=== PATIENT | female | born 1980 | race Caucasian/White ===

== ENCOUNTER → 2018-03-13 13:44 | Outpatient (CLI) | payer BC, SELFPAY ==
--- NOTE | 2018-03-13 11:00 | EMB_PTH ---
PATIENT: DEMI ANDRES LOC: [facility] U#:[id number] AGE/SX: 44/F ROOM: RE03/13/[address]: Dr. Timmy Saucedo MD : 1980 BED: DIS: SPEC #: [id number] RECD: 03/13/18 13:37 STATUS: RANJAN BRAYAN #: [id number] SAMMIE: 03/13/18 11:[address]: Timmy Saucedo DEPT: SURGICAL PATHOLOGY RECD BY: Jacinda Lopez ENTERED: 03/15/18 08:12 SP TYPE: ENDOM BX/C ELIZABETH DR: Out of Town Doctor Tissues: Endometrium, NOS Procedures: Surgery Specimen Level IV HEADER OPERATION: Endometrial biopsy PRE-OP DIAGNOSIS: N92.1 TISSUE SUBMITTED: Endometrial biopsy MICROSCOPIC DIAGNOSIS Endometrial biopsy: Mildly disordered proliferative endometrium with focal glandular and stromal breakdown. SJ:jignesh 03/15/18 MICROSCOPIC DESCRIPTION Slides are reviewed. GROSS DESCRIPTION Received in fixative is one container labeled with the patient's name and designated EM biopsy. The specimen consists of multiple fragments of hemorrhagic soft tissue that in aggregate measure 3 x 2.5 x 0.2 cm. The entire specimen is submitted in one cassette. / SJ:jignesh 03/13/18 TC:4 CPT: 42454
[2018-03-16 16:14] LABS: HPV Reflexed? NOT INDICATED
== END ==
PROVIDERS: Referring Provider Obstetrics & Gynecology; Visit Provider Obstetrics & Gynecology
DX: N85.8 Other specified noninflammatory disorders of uterus (principal); N92.1 Excessive and frequent menstruation with irregular cycle; Z12.4 Encounter for screening for malignant neoplasm of cervix
CPT/HCPCS: 87624; 88175; 88305; G0145

== ENCOUNTER 2018-04-17 10:15 | Day surgery (SDC) | payer BC, SELFPAY ==
[2018-04-10 15:58] LABS: Hematocrit 37.2 % (37-47); Hemoglobin 12.2 g/dl (12.0-15.0); Mean Corp Hgb Conc 32.8 g/gl (32-36); Mean Corpuscular Hgb 29.5 pg (27.0-32.0); Mean Corpuscular Volume 89.9 fL (81-99); Mean Platelet Vol. 10.5 fl (6.2-12.0); Platelet Count 204 K/mm3 (150-450); RBC Distribution Width CV 13.3 % (11.6-14.6); RBC Distribution Width SD 43.2 fl (35.1-43.9); Red Blood Count 4.14 M/mm3 (4.2-5.4); White Blood Count 5.5 K/mm3 (4.4-11.0)
[2018-04-10 16:09] LABS: International Normalized Ratio 0.9; Prothrombin Time (Protime)PT. 12.4 SECONDS (11.7-14.9)
[2018-04-10 16:10] LABS: Partial Thromboplast Time 25.4 Seconds (24.1-36.2)
[2018-04-10 16:14] LABS: Scan Indicated on CBC? Y/N NO
[2018-04-10 16:44] LABS: Pregnancy, Serum, hCG Quali. NEGATIVE Negative (0-9 Nonpreg)
[2018-04-11 08:59] LABS: Thyroid Stim Hormone (TSH) 1.05 uIU/mL (0.358-3.74)
--- NOTE | 2018-04-16 17:45 | PCM.HP.BLA ---
History and Physical Date of Admission: 04/17/18 Surgical History and Physical Dalila Ferrari, a 37 year old female 3 0 0 0 3, presents for HTA, Hysteroscopy and D and C on April 17, 2018. -- Menorrhagia -- Prolonged heavy menses with clots and cramping. Spouse had Vasectomy for control.Heavy menses since child . Dalila claims it started gradually and has been present 2015. It occurs with menses. It is located in the vagina.; It is located in the lower abdomen. Dalila characterizes it to be non-radiating. Dalila characterizes the quality cramping.; Dalila characterizes the quality heavy. Severity is moderate and not improving. MEDICATIONS HISTORY: Patient is also takin. Levoxyl 125 mcg tablet, One pill by mouth once a day ALLERGIES: NKA Infections - Chicken pox Illnesses - environmental allergies, hypothyroidism Accidents - no injuries of consequence Hospitalizations - Childbirth and see surgery arrhythmia - Dr. Dhaliwal; Review of Systems: GENERAL - Denies fever, or chills SKIN - Denies skin changes EYES - Denies visual changes EARS - Denies difficulty hearing NOSE - Denies nasal congestion or bleeding MOUTH - Denies sore throat or difficulty swallowing NECK - Denies pain or swelling RESPIRATORY - Denies shortness of breath or wheezing CARDIOVASCULAR - Denies palpitations or chest pain GASTROINTESTINAL - Denies nausea, vomiting, diarrhea, constipation GENITOURINARY - Denies dysuria, frequency of urination, incontinence of urine MUSCULOSKELETAL - Denies joint or muscle pain NEUROLOGICAL - Denies localized numbness or weakness PSYCHIATRIC - Denies depression or anxiety ENDOCRINE - Denies heat or cold intolerance, weight loss or gain HEMATO-IMMUNOLOGIC - Denies excesive bleeding with cuts SOCIAL HISTORY: Alcohol Use - drinks occasionally not while Smoking - Never Diet - moderate, balanced diet and caffeine < 2 drinks per day Lifestyle - moderate stress lifestyle Exercise - active and walking Seat Belt Use - always Employer - [employer] Job Description - Daycare Illicit Drug Use - None Sexual Activity - Residence - owns a home Hours Worked - 25-30 Spouse-Sig Other Name - Donald Spouse-Sig Other Occupation - [employer] Spouse-Sig Other Phone No - [phone] Children Name(s) - Alex (06/2007), Herbert (04/2010), Coral Control - Vasectomy FAMILY HISTORY: Father: arthritis,psoriasis. Paternal Grandmother: Heart Disease. Paternal Grandfather: Heart Disease. MENSTRUAL HISTORY: LMP Known?- DefiniteAmount/Duration - 7 to 10 days, Regularity - Regular, Frequency - monthly days, LMP - 04/09/18, Age Onset Menarche - 11 PAST PREGNANCIES: Total Pregnancies - 3; Full Term Pregnancies - 3; Premature - 0; Abortions, Induced - 0; Abortions, Spontaneous - 0; Ectopics - 0; Multiple Births - 0; Living Children - 3 SURGICAL HISTORY: 1. GALLBLADDER, 2001 2. iggy PE tubes 1994 PHYSICAL EXAM BP- 130/80 Sitting, Right arm, regular cuff Weight- 183.12985 lbs Height- 61.75 inch BMI:33.81 CONSTITUTIONAL - NAD, well nourished, and well developed SKIN - No rash, lesions, or ulcers HEENT - Normocephalic, PERRLA, EOMI NECK - No nodes, no nuchal rigidity and thyroid normal size and texture LYMPH NODES - Palpation of lymph nodes in neck and groins within normal limits LUNGS - CTA x2 without wheezes, crackles or rales CARDIAC - Regular rate and rhythm without rubs, murmurs, or gallops BREAST - No dominant masses, no tenderness, no axillary adenopathy, no nipple discharge, no skin changes ABDOMEN - Without hepatosplenomegaly, distention, masses, rebound, or guarding; normal bowel sounds; no hernias EXTREMITIES - No edema or calf tenderness NEUROLOGICAL - Cranial nerves II-XII grossly intact PSYCHIATRIC - A and O to time, place, person, mood and affect DETAILED PELVIC EXAM External Genital Vagina - non-tender without lesions Urethra/Urethral Meatus - non-tender Bladder - non-tender Vagina - vaginal still are pink and moist without loss of rugae and no evidence of atropy Cervix - without cervical motion tenderness and has normal size and features without evident lesions Uterus - multiparous size 6 cm & wt 75-125 g Adnexa - clear without masses or tenderness ASSESSMENT/PLAN: 1. Menorrhagia Uncertain etiology. EMBx and pelvic u/s OK. Discussed options and desires to proceed with HTA and H/S and D and C. Discussed RBAs.
[2018-04-17] VITALS (7 sets, daily range): BP systolic 96–119; BP diastolic 56–70; PULSE 70–83; RESP 16–18; TEMP 36.6–37.1; O2SAT 94–98; BMI 32.5
--- NOTE | 2018-04-17 | FALS_PTH ---
PATIENT: DEMI ANDRES [place] [facility] [place][id number] AGE/SX: 37/F ROOM: RE04/17/[address]: Dr. Timmy Saucedo MD : 1980 BED: DIS: 04/17/2018 SPEC #: [id number] RECD: 04/17/18 16:14 STATUS: RANJAN BRAYAN #: [id number] SAMMIE: 04/17/18 00:[address]: Timmy Saucedo DEPT: SURGICAL PATHOLOGY RECD BY: Luis Armando Morgan ENTERED: 04/18/18 10:23 SP TYPE: FALL TUBES OTHR DR: Dr. Junior Urias MD Tissues: A - Fallopian tube B - Endometrium, NOS Procedures: Surgery Specimen Level II Surgery Specimen Level IV HEADER OPERATION: Hysteroscopy, dilation and curettage, hydrothermal ablation, salpingectomy PRE-OP DIAGNOSIS: Menorrhagia TISSUE SUBMITTED: A - Bilateral fallopian tubes, B - Endometrial curettings MICROSCOPIC DIAGNOSIS A. Bilateral fallopian tubes, salpingectomy: Segments of bilateral fallopian tubes including fimbrial ends, no pathologic diagnosis. Paratubal cysts. B. Endometrial curettings: Proliferative endometrium with focal glandular breakdown. BANDAR:jignesh 04/19/18 COMMENT Please make reference to previous specimen ([id number]) endometrial biopsy with diagnosis of mildly disordered proliferative endometrium with focal glandular and stromal breakdown. MICROSCOPIC DESCRIPTION Slides are reviewed. GROSS DESCRIPTION A - Received is one container labeled with the patient's name and designated bilateral fallopian tubes. The specimen consists of four tubular fragments of tissue ranging in size from 2 to 5.5 cm and varying in diameter from 0.6 to 0.5 cm. Fimbriated ends are identified on two fragments. Also present in the container are two glistening cyst structures ranging in size from 0.8 to 1.2 cm. The cystic structures contain clear fluid. One fallopian tube is inked in black ink. Photo Cartographer sections from both fallopian tubes are submitted along with the two cystic structures in one cassette. B - Received in fixative is one container labeled with the patient's name and designated endometrial curettings. The specimen consists of multiple irregular fragments of pink-shaver soft tissue that in aggregate measure 3 x 3 x 0.2 cm. The specimen is submitted in its entirety in two cassettes. / AM:jignesh 04/18/18 TC:5 CPT: 91143 x2, [id number]
[2018-04-17 10:33] LABS: Internal QC Validated? YES +Cl - CLEAR BKGD
[2018-04-17 10:37] LABS: Pregnancy, Urine Negative Negative
--- NOTE | 2018-04-17 12:22 | PCM.OPRPT ---
Report of Operation Date of Procedure: 04/17/18 Pre-Operative Diagnosis: Menorrhagia, Desires Sterilization Post-Operative Diagnosis: Menorrhagia, Desires Sterilization Surgery/Procedure Performed:: Laparoscopic Bilateral Salpingectomy, Hydrothermal Ablation, Dilation and Curettage, Diagnostic Hysteroscopy Description of Surgical Findings:: Normal pelvis. Normal-appearing fallopian tubes and ovaries. No polyps or fibroids noted in the endometrial cavity. 8 cm endometrial cavity. Approximately 3 cm intramural fibroid on anterior surface of the uterus. medical records secretary: Lesa Mckeon Type of Anesthesia:: General Anesthesiologist: Nik Sue Estimated Blood Loss (mL): Minimal Fluids Replaced: Crystalloid Description of Procedure: Surgeon: Timmy Saucedo MD, FACOG Indication: This is a 37 year old patient who has been having problems with extremely heavy menses. She also desires permanent sterilization. Her has had a vasectomy. Conservative measures have not been helpful. Endometrial sampling was benign and pelvic ultrasound showed that ablation may be helpful. Pt has been counseled regarding the risks, benefits and alternatives of this procedure and all questions answered. She understands that only about half of patients will have amenorrhea after this procedure. She also understands the permanent nature of her tubal as well as the failure rate of 1-2%. All questions were answered we consider the patient well-informed. Procedure: Patient taken to the operating room where after induction of general anesthesia the patient was prepped and draped in the usual sterile fashion. Bladder was drained of urine with a catheter. Anterior cervix grasped and a Conn cannula was placed. Attention was turned towards the laparoscopic portion of the procedure. Approximately 20 cc of half percent ropivacaine was injected subumbilically suprapubically and midway between. A 5 mm bladeless trocar was placed subumbilically and intraperitoneal placement confirmed. After CO2 insufflation was complete, a 5 mm bladeless trocar was introduced suprapubically. The above findings were noted. A 5 mm bladeless port was then placed midway between these 2 ports for tubal manipulation. Each fallopian tube was identified to its fimbriated end and an Enseal device was used to divide the mesosalpinx and then fallopian tube at the uterus. Tubes were removed through the lower 5 mm port. The peritoneal cavity and upper abdomen were examined and noted to be normal. Photographs were taken. Laparoscopic instruments with as much CO2 gas as possible were removed and incisions were closed with interrupted 4-0 Monocryl suture. Steri-Strips placed across the incisions. Attention was turned toward the hysteroscopic portion of the procedure. Conn cannula was removed and cervix was dilated to about 17 [place] size. Hysteroscopic hydrothermal ablation (HTA) unit was place in the cervix and the above findings were noted. HTA unit was removed and the uterus was gently curretted removing all contents. An HTA ablation cycle was then carried out at about 90 degrees Centigrade for 10 minutes with virtually no saline fluid loss during the procedure. After an appropriate cool down the HTA unit was removed with minimal bleeding noted. Patient tolerated procedure well was taken to recovery room in satisfactory condition sponge instrument and needle counts were all reportedly correct. There were no apparent complications of the surgery. Cefotan 2 gm IV was given prior to beginning the operative procedure. Estimated blood loss for the case was minimal. Specimens to pathology were endometrial curettings and bilateral fallopian tubes.
--- NOTE | 2018-04-17 12:28 | DCINST_ITS ---
Discharge Diet: No Restrictions - Increase fluid intake for the next 48 hours. Discharge Activity: Return to Normal Activity, May Drive - when you are no longer taking pain/narcotic medicines., May Shower, May Take a Tub Bath May resume sexual activity in: 4 weeks Additional Activity Instructions:: Ambulate often the next week after surgery. Call your doctor if your incision/area has: Continuous Slow Oozing, Sudden Increased Bleeding, Increased Pain/ Swelling, Increased Redness, Foul Smelling Discharge Call your doctor if you observe: Fever of 101 or Higher, Inability to urinate, Inability to have a bowel movement, Using more than one pad per hour Allergies/Adverse Reactions: Allergies No Known Allergies Allergy (Verified 04/10/18 09:43) Medications to take at Discharge Levothyroxine [Synthroid] 137 mcg PO DAILY 04/10/18 Hydrocodone/Acetaminophen [Tualatin 5-325 Tablet] 1 ea PO Q6H PRN PRN 7 Days #10 tab 04/17/18 The following prescriptions were given: Hydrocodone/Acetaminophen [Tualatin 5-325 Tablet] 1 ea PO Q6H PRN PRN 7 Days #10 tab PRN Reason: Severe Pain (6-12/21) Orders to be completed after discharge: Thyroid Stim Hormone (TSH) Time Frame: 04/10/18, Location: Laboratory Primary Care Physician: Junior Urias MD [Primary Care Provider] - Test Results: Test results from this visit will be discussed in further detail at your follow- up appointment, if applicable. Please Follow Up With: Timmy Saucedo MD - [phone] When: 2-3 weeks
[2018-04-17] MEDS: Ropivacaine 0.5% 30 ML Vial (12:58)
[2018-04-17] MEDS: HYDROcodone Bitartrate/Apap 5/325 Tablet PO (14:55)
== END 2018-04-17 15:51 | disposition home or self-care (01) ==
LOC: SDC 10:16 → AC 10:17
PROVIDERS: Anesthesiology; Family Provider Family Medicine; PCP Family Medicine; Referring Provider Obstetrics & Gynecology; Visit Provider Obstetrics & Gynecology
PROC: 0U5B8ZZ Destruction of Endometrium, Via Natural or Artificial Opening Endoscopic (ICD-10-PCS; CPT 58563; principal; 2018-04-17 11:35)
PROC: (CPT 58661; 2018-04-17 11:35)
DX: Z30.2 Encounter for sterilization (principal); N92.0 Excessive and frequent menstruation with regular cycle; E03.9 Hypothyroidism, unspecified; Z79.899 Other long term (current) drug therapy; D25.1 Intramural leiomyoma of uterus; N83.8 Other noninflammatory disorders of ovary, fallopian tube and broad ligament
CPT/HCPCS: 00952; 58563; 58661; 36415; 81025; 84443; 84703; 85027; 85610; 85730; 86850; 86900; 88302; 88305; J7120; C1760; J2405

== ENCOUNTER → 2018-05-31 11:24 | Outpatient (CLI) | payer BC, SELFPAY ==
[2018-05-31 10:20] VITALS: BMI 31.8
[2018-05-31 13:09] LABS: Anion Gap 4 (5-15); BUN 9 mg/dL (7-18); BUN/Creat Ratio 13.3 RATIO (10-20); Calcium,Total 8.6 mg/dL (8.5-10.1); Chloride 108 mmol/L (98-107); Creatinine, Serum 0.68 mg/dL (0.55-1.02); EST Glomerular Filtration Rate 103 mL/min (>60); Est Glom Filt Rate - Afr Amer 125 mL/min (>60); Glucose 83 mg/dL (74-106); Sodium Level 137 mmol/L (136-145)
== END ==
PROVIDERS: Family Provider Family Medicine; PCP Family Medicine; Referring Provider Internal Medicine Cardiovascular Disease; Visit Provider Internal Medicine Cardiovascular Disease
DX: I10 Essential (primary) hypertension (principal)
CPT/HCPCS: 36415; 80048

== ENCOUNTER → 2018-06-05 13:28 | Outpatient (CLI) | payer BC, SELFPAY ==
[2018-05-31 10:20] VITALS: BMI 31.8
--- NOTE | 2018-06-05 13:30 | STEWCON_ITS ---
Reason For Study: Chest Pain Stress Results Protocol: Rubio Protocol Maximum Predicted HR: 182 bpm Target HR: 155 bpm % Maximum Predicted HR: 104 % DurationHeart Rate Stage (mm:ss) (bpm) BP Comment Baseline 92 102/70No Chest Pain; Diluted Definity 2 ML Given Rubio Protocol Stage I 3:00 144 120/72No Chest Pain Rubio Protocol Stage II 3:00 171 128/68No Chest Pain Rubio Protocol Stage III 3:00 181 140/62No Chest Pain Rubio Protocol Stage IV 1:00 190 / No Chest Pain; Mild to Moderate Dypsnea Recovery 115 102/60No Chest Pain Stress Duration: 10:00 mm:ss Maximum Stress HR: 190 bpm METS: 13 Baseline Echocardiogram Findings Stress Echo Wall motion Data Resting WM Intermediate WM Stress WM Resting Wall Motion Wall Motion Stress No regional wall motion No regional wall motion abnormalities noted. abnormalities noted. Ejection Fraction 60 %. Ejection Fraction 75 %. Stress Results Normal blood pressure response to exercise. Exercise was stopped due to achievement of target heart rate. Interpretation Summary Exercise stress echo. Stress protocol: Resting EKG demonstrates normal sinus rhythm with a rate of 86 bpm occasional premature ventricular complex is noted. The patient exercised according to regular Rubio protocol for a total duration of 10 minutes completing 1 minute into stage IV of the Rubio protocol the maximum heart rate attained was 190 bpm which was 104% of maximum predicted heart rate the maximum workload was 13.4 metabolic equivalents. At rest there were no ST or T wave changes noted suggest ischemia peak exercise upsloping ST changes only were noted with no meet the criteria for ischemia no clinical angina was noted no arrhythmias were noted. Direct resting blood pressure 102/70 with a peak blood pressure 140/62. Stress echocardiographic images. Resting and stress echocardiographic images were performed with Definity enhancement. The resting ejection fraction was 60% with a peak ejection fraction of 75% no wall motion of normality's were noted the left ventricle contracted in size appropriately with thickening of all still. No evidence of ischemia was noted. Conclusion: Normal exercise stress test with no EKG criteria for ischemia. Delayed heart rate recovery noted. Normal resting and stress echocardiographic images. No ischemia noted Ordering Physician: Emeterio Dhaliwal Referring Physician: Sukhwinder Urias Performed By: Luz Mulligan RDCS
== END ==
PROVIDERS: Family Provider Family Medicine; PCP Family Medicine; Referring Provider Internal Medicine Cardiovascular Disease; Visit Provider Internal Medicine Cardiovascular Disease
DX: R07.9 Chest pain, unspecified (principal)
CPT/HCPCS: 93017; 93350; Q9957; A4216; C8928

== ENCOUNTER → 2019-03-16 10:43 | Outpatient (CLI) | payer BC, SELFPAY ==
[2019-03-16 10:07] VITALS: BMI 31.8
[2019-03-16 12:19] LABS: Vitamin B12 372 pg/mL (211-911); Vitamin D,25 Hydroxy 18.1 ng/mL (29.95-100.01)
[2019-03-16 12:21] LABS: Cholesterol 205 mg/dL (200); High Density Lipoprotein 66 mg/dL; T4 Free Direct 0.84 ng/dL (0.76-1.46); Triglycerides 104 mg/dL; Very Low Density Lipoprotein 21 mg/dL (5-40)
== END ==
PROVIDERS: Referring Provider Internal Medicine Endocrinology, Diabetes & Metabolism; Visit Provider Internal Medicine Endocrinology, Diabetes & Metabolism
DX: E03.8 Other specified hypothyroidism (principal); E06.3 Autoimmune thyroiditis; E55.9 Vitamin D deficiency, unspecified
CPT/HCPCS: 36415; 80061; 82306; 82607; 84439; 84443

== ENCOUNTER → 2019-05-15 09:14 | Outpatient (CLI) | payer BC, SELFPAY ==
[2019-03-16 10:07] VITALS: BMI 31.8
[2019-05-08 09:24] VITALS: BMI 31.8
--- NOTE | 2019-05-15 09:25 | RAD_ITS ---
STUDY: X-RAY - ESOPHAGUS (BARIUM SWALLOW) WITH FLUOROSCOPY REASON FOR EXAM: Female, 38 years old. DYSPHAGIA X 6 MONTHS, FAMILY HX OF DYSPHAGIA TECHNIQUE: 17 view(s) of the esophagus were obtained following swallowing of barium. FLUOROSCOPY TIME (if supplied): (0:30) minutes/seconds COMPARISON: None. FINDINGS: There is no demonstrated esophageal foreign body. There is no demonstrated stricture or mucosal abnormality. Normal gastroesophageal junction, without a demonstrated hiatal hernia. The patient ingested a 12 mm tablet of barium without any difficulty. Normal visualized aortic arch and descending thoracic aorta. Normal visualized pulmonary parenchyma. Normal visualized osseous structures of the thorax. RAD/Esophagus Single Contrast IMPRESSION: Normal plain film x-ray examination (barium swallow) of the esophagus. Electronically Signed: Fredrick Allan, at 10:14 EST , Service support ,
== END ==
PROVIDERS: Referring Provider Otolaryngology Otolaryngology/Facial Plastic Surgery; Visit Provider Otolaryngology Otolaryngology/Facial Plastic Surgery
DX: R13.10 Dysphagia, unspecified (principal)
CPT/HCPCS: 74220

== ENCOUNTER → 2019-11-14 | Outpatient (CLI) | payer BC, SELFPAY ==
[2019-08-14 09:33] VITALS: BMI 31.6
== END | disposition home or self-care (01) ==
LOC: LABSPEC 16:15
PROVIDERS: Visit Provider Obstetrics & Gynecology
DX: R30.0 Dysuria (principal)
CPT/HCPCS: 87086; 87088

== ENCOUNTER → 2019-12-20 | Outpatient (CLI) | payer BC, SELFPAY ==
[2019-08-14 09:33] VITALS: BMI 31.6
== END | disposition home or self-care (01) ==
LOC: LABSPEC 15:56
PROVIDERS: Visit Provider Obstetrics & Gynecology
DX: N39.0 Urinary tract infection, site not specified (principal)
CPT/HCPCS: 87086; 87088

== ENCOUNTER → 2020-01-22 15:57 | Outpatient (CLI) | payer BC, SELFPAY ==
[2020-01-22 15:25] VITALS: BMI 30.5
[2020-01-22 18:49] LABS: Vitamin B12 523 pg/mL (211-911); Vitamin D,25 Hydroxy 26.8 ng/mL
[2020-01-22 18:54] LABS: ALB/GLOB Ratio 1.1 RATIO (0.9-2.4); AST(SGOT) 9 U/L (15-37); Alanine Aminotransfer ALT/SGPT 21 U/L (13-56); Albumin, Serum 3.9 g/dL (3.2-5.0); Alkaline Phosphatase 60 U/L (45-117); Anion Gap 7 (5-15); BUN 11 mg/dL (7-18); BUN/Creat Ratio 14.8 RATIO (10-20); Calcium,Total 8.6 mg/dL (8.5-10.1); Chloride 105 mmol/L (98-107); Creatinine, Serum 0.74 mg/dL (0.55-1.02); EST Glomerular Filtration Rate 92 mL/min (>60); Est Glom Filt Rate - Afr Amer 112 mL/min (>60); Globulin 3.6 g/dL (2.2-4.2); Glucose 84 mg/dL (74-106); Potassium 3.6 mmol/L (3.5-5.1); Protein, Total 7.5 g/dL (6.4-8.2); Sodium Level 139 mmol/L (136-145); T4 Free Direct 1.24 ng/dL (0.76-1.46)
== END ==
PROVIDERS: Referring Provider Internal Medicine Endocrinology, Diabetes & Metabolism; Visit Provider Internal Medicine Endocrinology, Diabetes & Metabolism
DX: E03.9 Hypothyroidism, unspecified (principal); E53.8 Deficiency of other specified B group vitamins; E55.9 Vitamin D deficiency, unspecified
CPT/HCPCS: 36415; 80053; 82306; 82607; 84439; 84443

== ENCOUNTER → 2020-09-09 10:07 | Outpatient (CLI) | payer BC, SELFPAY ==
[2020-09-09 08:48] VITALS: BMI 29.9
[2020-09-09 10:37] LABS: Absolute Lymphocyte Count 2.09 X10^3/uL (0.83-4.51); Absolute Neutrophil Count 2.4 X10^3/uL (2.0-7.7); Basophil# 0.03 X10^3/uL; Basophil% 0.6 % (0-1); Eosinophil# 0.09 X10^3/uL; Eosinophils% 1.8 % (0-5); Hemoglobin 13.2 g/dL (12.0-15.0); Lymphocyte # 2.09 X10^3/ul (0.83-4.51); Lymphocyte % 41.8 % (19-41); Mean Corpuscular Hgb 29.3 pg (27.0-32.0); Mean Corpuscular Volume 88.9 fL (81-99); Mean Platelet Vol. 9.8 fl (6.2-12.0); Monocyte# 0.34 X10^3/uL; Monocyte% 6.8 % (0-10); NRBC Flagged by Analyzer 0 % (0-5); Neutrophil # 2.43 X10^3/uL (2.7-7.7); Neutrophil % 48.6 % (47-70); Platelet Count 237 K/mm3 (150-450); RBC Distribution Width CV 12.3 % (11.6-14.6); RBC Distribution Width SD 39.8 fl (35.1-43.9)
[2020-09-09 11:07] LABS: Anion Gap 6 (5-15); BUN 8 mg/dL (7-18); Calcium,Total 8.7 mg/dL (8.5-10.1); Chloride 107 mmol/L (98-107); Creatinine, Serum 0.73 mg/dL (0.55-1.02); EST Glomerular Filtration Rate 94 mL/min (>60); Est Glom Filt Rate - Afr Amer 113 mL/min (>60); Glucose 95 mg/dL (74-106); Sodium Level 138 mmol/L (136-145); Thyroid Stim Hormone (TSH) 0.11 uIU/mL (0.358-3.74)
[2020-09-13 07:33] LABS: HPV APTIMA, High Risk Negative (Negative)
== END ==
PROVIDERS: Student in an Organized Health Care Education/Training Program; Referring Provider Internal Medicine Cardiovascular Disease; Visit Provider Internal Medicine Cardiovascular Disease
DX: E03.8 Other specified hypothyroidism (principal); E06.3 Autoimmune thyroiditis; I10 Essential (primary) hypertension; Z12.4 Encounter for screening for malignant neoplasm of cervix
CPT/HCPCS: 36415; 80048; 84443; 85025; 87624; 88175; G0145